=== PATIENT | female | born 1960 | race Caucasian/White ===

== ENCOUNTER 2016-08-04 14:50 | Inpatient (IN) | payer OTHER ==
[~2016-08-04] VITALS: Ht 170.2 cm; Wt 81.6 kg
[~2016-08-04 14:50] MED LIST: BENTYL20 M1 PO; CIPRO 500MG TA500 MG PO; CIPRO500 M1 PO; CYTOMEL5 MCG PO; ZOFRAN ODT4 MG PO
--- NOTE | 2016-08-04 14:54 | NUR ---
C/O CONSTIPATION X2 WEEKS, NO RELIEF WITH FLEETS. PT TAKING VICODIN. ALSO TOOK SENACOT WITH NO RELIEF
--- NOTE | 2016-08-04 19:24 | NUR ---
PT TO ROOM 17 AND EVALUATED BY HIRA FRANCO. IV EST, IVF INFUSING AND ZOFRAN GIVEN. BLOOD SENT (SHAYY/LEONARD/KIRBY). PT AMBULATED TO BATHROOM FOR URINE SAMPLE. AFTER SEVERAL MINUTES IN BATHROOM, CAME TO NURSING STATION STATING PT WAS SCREAMING AND YELLING AND WOULDN'T COME OUT OF THE BATHROOM "BECAUSE SHE HAS PAIN AND WANTS A NURSE." PT CHECKED IN BATHROOM, HYPERVENTILATING AND MOANING, URINE NOTED IN TOILET WITH NONE IN CUP AND PT STATING "I JUST COULDN'T GO AND EVERY TIME I TRY IT HURTS SO BAD AND I DON'T WANT ANY OF THESE IV FLUIDS I NEED THEM TO GIVE ME SOMETHING FOR THIS PAIN." PT INFORMED SHE CANNOT BE MEDICATED IN BATHROOM AND AMBULATED BACK TO ROOM INDEPENDENTLY. PT CALMER AFTER REST AND SEVERAL MINUTES OF DISTRACTION FROM . EXPLAINED TO PT THAT "STRONG PAIN MEDS" THAT SHE IS REQUESTING WILL CONTRIBUTE TO THE CONSTIPATION SHE IS FINDING SO PAINFUL. PT AWAITING CT SCAN AT THIS TIME.
[2016-08-04] MEDS ORDERED: VITAMIN D2000 UNIT PO (19:30)
[2016-08-04] MEDS ORDERED: HYDROCODON-ACE1 EAC6 PO (19:30)
[2016-08-04 19:44] LABS: ABSOLUTE BASOPHIL COUNT 0.2 /CUMM (0.0-0.2); ABSOLUTE EOSINOPHIL COUNT 0 /CUMM (0.0-0.7); ABSOLUTE GRANULOCYTE CT 16.7 /CUMM (1.4-6.5); ABSOLUTE LYMPH COUNT 2.5 /CUMM (1.2-3.4); ABSOLUTE MONOCYTE COUNT 0.9 /CUMM (0.10-0.60); EOSINOPHIL % 0 % (0-5); HEMATOCRIT 42.7 % (37-47); MEAN CORPUSCULAR HGB 30.4 PG (27.0-31.0); MEAN CORPUSCULAR HGB CONC 33.3 G/DL (33.0-37.0); MEAN CORPUSCULAR VOLUME 91.4 FL (81.0-99.0); MEAN PLATELET VOLUME 8.5 FL (7.4-10.4); PLATELET COUNT 255 /CUMM (130-400); RBC DISTRIBUTION WIDTH 13.4 % (11.5-14.5); RED BLOOD CELL CT 4.67 /CUMM (4.20-5.40); WHITE BLOOD CELL COUNT 20.2 /CUMM (4.8-10.8)
[2016-08-04 19:45] LABS: GRANULOCYTE % 82.3 % (42.2-75.2)
--- NOTE | 2016-08-04 20:01 | ED GI/GU/ABDOMINAL COMPLAINT ---
History of Present Illness General Chief Complaint: Low Back Pain/Injury Stated Complaint: LOWER BACK PAIN "HAVE NOT MOVED BOWELS IN 2 WEEKS" Source: patient Exam Limitations: no limitations Allergies Coded Allergies: NO KNOWN ALLERGIES (06/16/12) Reconcile Medications Cholecalciferol (Vitamin D3) (Vitamin D) (Unknown Strength) CAPSULE (Unknown Dose) PO DAILY SUPPLEMENT (Reported) Hydrocodone/Acetaminophen (Hydrocodon-Acetaminoph 7.5-300) 7.5 MG-300 MG TABLET 1 TAB PO EOD PAIN (Reported) Liothyronine Sodium (Cytomel) 5 MCG TABLET 1 TAB PO DAILY THYROID (Reported) Triage Note: C/O CONSTIPATION X2 WEEKS, NO RELIEF WITH FLEETS. PT TAKING VICODIN. Triage Nurses Notes Reviewed? yes ? N Is pt currently ? No HPI: This patient is a 56-year-old female who presented to the emergency department today for evaluation of constipation. The patient reported that she started taking Vicodin for a left arm fracture. She has taken 5 doses of this. The patient reported that she has not moved her bowels or passed gas 2 weeks. She reported that last night she started having 8 out of 10, cramping lower abdominal pain primarily on the left side. The pain is nonradiating and constant. She also has been having back pain, but reported that this pain she has had for, for "a while." The patient reports that she has not urinated since this afternoon reported that she feels like she can't because it is painful. The patient reported chills, but denied any fevers. She denies any chest pain or difficulty breathing. No diarrhea. Positive nausea and vomiting today. No blood in the vomitus. (JOAN BAUTISTA,CHRISTIANO) Vital Signs & Intake/Output Vital Signs & Intake/Output Vital Signs Date Time Temp Pulse Resp B/P Pulse O2 O2 Flow FiO2 Ox Delivery Rate 08/06 0714 98.1 58 18 122/80 95 Room Air 08/05 2340 98.7 58 18 112/56 97 Room Air 08/05 1550 97.9 62 19 122/62 95 ED Intake and Output 08/06 0000 08/05 1200 Intake Total 2700 600 Output Total 700 600 Balance 2000 0 Intake, IV 1600 600 Intake, Oral 1100 Number 3 Bowel Movements Output, Urine 700 600 Patient 180 lb Weight Past History Travel History Traveled to [place] past 21 day No Medical History Any Pertinent Medical History? 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 No (CHRISTIANO FRANCO PA-C) Review of Systems Review of Systems Constitutional: Reports: see HPI. EENTM: Reports: no symptoms. Respiratory: Reports: no symptoms. Cardiovascular: Reports: no symptoms. GI: Reports: see HPI. Genitourinary: Reports: see HPI. Musculoskeletal: Reports: see HPI. Skin: Reports: no symptoms. Neurological/Psychological: Reports: no symptoms. All Other Systems: Reviewed and Negative (CHRISTIANO FRANCO PA-C) Physical Exam Physical Exam Gastrointestinal: hypoactive bowel sounds, soft, distended, no organomegaly, no rebound or guarding, tenderness across the lower abdomen. Comments: Well-developed well-nourished person in no acute distress HEENT: Normal EENT exam, moist mucous membranes Pupils equally round and reactive to light. Neck: Supple Back: Normal inspection. No midline tenderness. Right-sided CVA tenderness Cardiovascular: Regular rate and rhythm without murmurs, rubs, or gallops Respiratory: No respiratory distress. Breath sounds clear to auscultation bilaterally Extremity: Normal and equal pulses Neuro: Alert oriented x3, cranial nerves II through XII grossly intact. Skin: No appreciable rash on exposed skin, skin is warm and dry. Psych: Mood and affect is normal, memory and judgment is normal. Core Measures ACS in differential dx? No Severe Sepsis Present: No Septic Shock Present: No (CHRISTIANO FRANCO PA-C) Progress Differential Diagnosis: AMI, biliary colic, bowel obstruction, colon cancer, cholecystitis, diverticulitis, gastritis, hepatitis, ischemic bowel, inflamm bowel dis, ovarian cyst, ovarian torsion, pancreatitis, PID/cervicitis, PUD/GERD , perforated viscous, SBO, UTI/pyelo Diagnostic Imaging: Viewed by Me: CT Scan. Discussed w/RAD: CT Scan. Radiology Impression: PATIENT: RAMONA MUSA PRESENT AGE: 56 PATIENT ACCOUNT NO: [id number] : 56 LOCATION: [facility] ORDERING PHYSICIAN: CHRISTIANO FRANCO PA-C SERVICE DATE: 08/04/16 EXAM TYPE: CAT - CT ABD & PELVIS W IV CONTRAST EXAMINATION: CT ABDOMEN AND PELVIS WITH CONTRAST CLINICAL INFORMATION: 56-year-old female reports no bowel movement for 2 weeks. COMPARISON: CT of the abdomen and pelvis on 12/28/2015. (No obstruction, no IBD) . TECHNIQUE: Multidetector volumetric imaging was performed of the abdomen and pelvis before and after the IV administration of 95 mL of Optiray 320 intravenous contrast. Sagittal and coronal reformatted images were obtained on the technologist's workstation. DLP: 638 mGy-cm. FINDINGS: Business Initiatives Manager view demonstrates severe stool impaction in the rectosigmoid colon. There is no proximal dilatation of the intestinal tract. LUNG BASES: The visualized lung bases are unremarkable. LIVER, GALLBLADDER, AND BILIARY TREE: Normal. PANCREAS: Unremarkable. SPLEEN: Unremarkable. ADRENAL GLANDS: Unremarkable. KIDNEYS AND URETERS: Normal. The right renal pelvis is extrarenal. BLADDER: Distended. GASTROINTESTINAL TRACT: There are two significant findings with regard to the GI tract. First, on the prior CT exam, the duodenal jejunal junction was located in the left upper quadrant in the normally expected position. On today's exam the patient has a mobile mesentery and the DJ junction is clearly positioned more medially and inferiorly. There are slightly dilated proximal jejunal loops now present in the right abdomen. Also, there is a swirling type appearance at the root of the mesentery. This was not the case on the previous study. This volvulus has resulted in incomplete obstruction and the distal small bowel loops are decompressed. Also, the cecum and ileocecal valve are positioned more superiorly and medially on today's exam when compared to the prior study. The second abnormality is the observation that the patient has severe stool impaction of the rectosigmoid colon. The distended stool-filled rectosigmoid colon measures 8 cm in diameter. The rest of the colon is decompressed. There is no free air or free fluid. No pneumatosis. ABDOMINAL WALL: No significant hernia is appreciated. LYMPH NODES: Normal. VASCULAR: Numerous calcific plaques are seen in the infrarenal abdominal aorta. PELVIC VISCERA: Normal uterus and adnexa. No free fluid. OSSEOUS STRUCTURES: Unremarkable. IMPRESSION: 1. Findings that would indicate a partial small bowel obstruction due to a mobile mesentery, (malrotation), and jejunal volvulus. 2. Mobile cecum. 3. Severe stool impaction of the rectosigmoid colon. DICTATED BY: JOHN AKHTAR MD DATE/TIME DICTATED: 08/04/162104 BRAKE MECHANIC:CHRIS DATE/TIME TRANSCRIBED:08/04/162104 CONFIDENTIAL, DO NOT COPY WITHOUT APPROPRIATE AUTHORIZATION. <Electronically signed in Other Vendor System> SIGNED BY: JOHN AKHTAR MD 08/04/162129 Initial ED EKG: none Comments: 08/04/2016 8:46:19 PM: I was at the patient's bedside for reevaluation. She reported no relief of her abdominal pain with IV Toradol. I would like to avoid giving this patient any more narcotic take medications due to the constipating effect. The patient reported relief of her nausea. White blood cell count 20. My suspicion is that this patient has a small bowel obstruction. Awaiting results of CT scan times. 08/04/2016 10:04:01 PM: I discussed this patient with on-call general surgeon, Dr. Melchor. The surgical PA will be down to the patient's bedside for face-to- face evaluation. 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 08/04/2016 10:13:19 PM: Surgical PAs currently at the patient's bedside. Dr. Melchor paged to let me know that he looked at the CT scan results and does not think that this is a volvulus or an obstruction. He lives that this patient is impacted and is requesting that this patient given an enema. 08/04/2016 11:05:56 PM: Discussed this patient with Dr. MAZARIEGOS. This patient does have a leukocytosis and abdominal pain. Suggested that I admit this patient to general medicine for further workup. Surgical consultation concluded that this patient is impacted and that there is no impaction or volvulus. I attempted multiple times to manually disimpact this patient. A small amount of brown stool was removed. However, the patient refused further manual disimpaction. Will try 12 mg subcutaneous of Relistor as this is likely at least in part due to opioid-induced constipation. Will also try a soapsuds enema. (JOAN BAUTISTA,CHRISTIANO) Plan of Care: Orders Procedure Date/time Status [id number] VIEWS 08/06 0600 Active Regular Diet 08/05 D Active Pain Treatment and Response 08/05 1635 Active Nursing Misc 08/05 UNK Active Current Medications Sig/Kalin Start time Last Medication Dose Stop Time Status Admin Hyoscyamine 0.125 MG Q6PRN PRN 08/05 1730 AC (Levsin) Nicotine 14 MG Q24 08/05 1000 AC (Nicotine Cq) Ibuprofen 600 MG Q6P PRN 08/05 0100 AC (Motrin) Departure Departure Disposition: STILL A PATIENT Condition: Stable Clinical Impression Primary Impression: Leukocytosis Qualifiers: Leukocytosis type: unspecified Qualified Code: D72.829 - Elevated white blood cell count, unspecified Secondary Impressions: Abdominal pain Qualifiers: Abdominal location: lower abdomen, unspecified Qualified Code: R10.30 - Lower abdominal pain, unspecified Referrals: AVANI PARRA MD (PCP/Family) Departure Forms: Customer Survey General Discharge Information Admission Note Spoke With: AVANI PARRA MD Documentation of Exam: Documentation of any treatments & extenuating circumstances including Concerns Regarding Discharge (functional status, medication knowledge or non-compliance, living conditions, etc.) that warrant an admission rather than observation: [ THIS PATIENT IS A 56 YEAR OLD FEMALE WHO PRESENTED TO THE EMERGENCY DEPARTMENT FOR EVALUATION OF ABDOMINAL PAIN AND CONSTIPATION. WBC COUNT 20. IMPACTED STOOL. THIS PATIENT WILL NEED ADMISSION FOR PAIN MANAGEMENT, TREND LABS, FOLLOW-UP URINE CULTURE, POSSIBLE GI CONSULTATION. PREMATURE DISCHARGE COULD PROVE MEDICALLY HARMFUL.] (CHRISTIANO FRANCO PA-C) PA/VETERAN APPEALS REVIEWER Co-Sign Statement Statement: ED Attending supervision documentation- x I saw and evaluated the patient. I have also reviewed all the pertinent lab results and diagnostic results. I agree with the findings and the plan of care as documented in the PA's/VETERAN APPEALS REVIEWER's documentation. [] I have reviewed the ED Record and agree with the PA's/VETERAN APPEALS REVIEWER's documentation. [] Additions or exceptions (if any) to the PAs/VETERAN APPEALS REVIEWER's note and plan are summarized below: [] (YAIR SOLOMON,ARMANI) Documentation of any treatments & extenuating circumstances including Concerns Regarding Discharge (functional status, medication knowledge or non-compliance, living conditions, etc.) that warrant an admission rather than observation: [ THIS PATIENT IS A 56 YEAR OLD FEMALE WHO PRESENTED TO THE EMERGENCY DEPARTMENT FOR EVALUATION OF ABDOMINAL PAIN AND CONSTIPATION. WBC COUNT 20. IMPACTED STOOL. THIS PATIENT WILL NEED ADMISSION FOR PAIN MANAGEMENT, TREND LABS, FOLLOW-UP URINE CULTURE, POSSIBLE GI CONSULTATION. PREMATURE DISCHARGE COULD PROVE MEDICALLY HARMFUL.] (JOAN BAUTISTA,CHRISTIANO) PA/VETERAN APPEALS REVIEWER Co-Sign Statement Statement: ED Attending supervision documentation- x I saw and evaluated the patient. I have also reviewed all the pertinent lab results and diagnostic results. I agree with the findings and the plan of care as documented in the PA's/VETERAN APPEALS REVIEWER's documentation. [] I have reviewed the ED Record and agree with the PA's/VETERAN APPEALS REVIEWER's documentation. [] Additions or exceptions (if any) to the PAs/VETERAN APPEALS REVIEWER's note and plan are summarized below: [] (YAIR SOLOMON,ARMANI)
--- NOTE | 2016-08-04 20:12 | NUR ---
MEDICATED WITH TORADOL FOR PAIN, REFUSES TO PROVIDE NUMERIC RATING AT THIS TIME, STATING PAIN IS MAINLY "IN MY RECTUM." SPOUSE ASKING "WHEN AND WHAT ARE YOU GOING TO GIVE HER TO EAT?" EXPLAINED TO PT AND SPOUSE THAT PT NEEDS TO STAY NPO UNTIL CONDITION IS EXPLORED FURTEHR.
--- NOTE | 2016-08-04 21:30 | CT SCAN REPORT ---
EXAMINATION: CT ABDOMEN AND PELVIS WITH CONTRAST CLINICAL INFORMATION: 56-year-old female reports no bowel movement for 2 weeks. COMPARISON: CT of the abdomen and pelvis on 12/28/2015. (No obstruction, no IBD). TECHNIQUE: Multidetector volumetric imaging was performed of the abdomen and pelvis before and after the IV administration of 95 mL of Optiray 320 intravenous contrast. Sagittal and coronal reformatted images were obtained on the technologist's workstation. DLP: 638 mGy-cm. FINDINGS: Wire Rope Sling Maker view demonstrates severe stool impaction in the rectosigmoid colon. There is no proximal dilatation of the intestinal tract. LUNG BASES: The visualized lung bases are unremarkable. LIVER, GALLBLADDER, AND BILIARY TREE: Normal. PANCREAS: Unremarkable. SPLEEN: Unremarkable. ADRENAL GLANDS: Unremarkable. KIDNEYS AND URETERS: Normal. The right renal pelvis is extrarenal. BLADDER: Distended. GASTROINTESTINAL TRACT: There are two significant findings with regard to the GI tract. First, on the prior CT exam, the duodenal jejunal junction was located in the left upper quadrant in the normally expected position. On today's exam the patient has a mobile mesentery and the DJ junction is clearly positioned more medially and inferiorly. There are slightly dilated proximal jejunal loops now present in the right abdomen. Also, there is a swirling type appearance at the root of the mesentery. This was not the case on the previous study. This volvulus has resulted in incomplete obstruction and the distal small bowel loops are decompressed. Also, the cecum and ileocecal valve are positioned more superiorly and medially on today's exam when compared to the prior study. The second abnormality is the observation that the patient has severe stool impaction of the rectosigmoid colon. The distended stool-filled rectosigmoid colon measures 8 cm in diameter. The rest of the colon is decompressed. There is no free air or free fluid. No pneumatosis. ABDOMINAL WALL: No significant hernia is appreciated. LYMPH NODES: Normal. VASCULAR: Numerous calcific plaques are seen in the infrarenal abdominal aorta. PELVIC VISCERA: Normal uterus and adnexa. No free fluid. OSSEOUS STRUCTURES: Unremarkable. IMPRESSION: 1. Findings that would indicate a partial small bowel obstruction due to a mobile mesentery, (malrotation), and jejunal volvulus. 2. Mobile cecum. 3. Severe stool impaction of the rectosigmoid colon.
--- NOTE | 2016-08-04 22:13 | NUR ---
PT BLOOD PINK AND BLUE SENT TO THE LAB
[2016-08-04 22:51] LABS: PT 12.3 SEC (9.4-12.5); PTT 30 SEC (25-37)
--- NOTE | 2016-08-04 22:54 | Cons- General Surgery ---
FUAD KIMBROUGH 08/04/16 2234: General Information and HPI Consulting Request Date of Consult: 08/04/16 Requested By: Emergency department staff Reason for Consult: Constipation, abdominal pain, and questionable small bowel obstruction on CAT scan Source of Information: patient Exam Limitations: no limitations History of Present Illness: This is a 56-year-old female who presents to the emergency department with complaints of a to [place] history of constipation/obstipation with 1 episode of vomiting this evening. Additionally she complains of abdominal discomfort and bloating. The patient was seen she reports approximately 2-1/2 weeks ago she fell and sustained a wrist fracture. Since then she has been taking Vicodin daily. Upon additional questioning she does admit to passing flatus but just not as well and obnoxious as her does. However, she has not had a bowel movement approximately 2-1/2 weeks. This morning when she awoke she was slightly nauseous and had 1 bout of emesis which concerned her so she came to the emergency department for further workup. She also complains of difficulty urinating for the past day and a half but denies any dysuria. The patient is on length current time. She has a significant surgical history for an appendectomy and tubal ligation. Allergies/Medications Allergies: Coded Allergies: NO KNOWN ALLERGIES (06/16/12) Home Med List: Cholecalciferol (Vitamin D3) (Vitamin D) (Unknown Strength) CAPSULE (Unknown Dose) PO DAILY SUPPLEMENT (Reported) Hydrocodone/Acetaminophen (Hydrocodon-Acetaminoph 7.5-300) 7.5 MG-300 MG TABLET 1 TAB PO EOD PAIN (Reported) Liothyronine Sodium (Cytomel) 5 MCG TABLET 1 TAB PO DAILY THYROID (Reported) Past History Medical History Neurological: NONE EENT: NONE Cardiovascular: NONE Respiratory: NONE Gastrointestinal: NONE Hepatic: NONE Renal: NONE Musculoskeletal: NONE Psychiatric: NONE Endocrine: hypothyroidism Blood Disorders: NONE Cancer(s): NONE 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 Home Who Do You Live With? spouse Services at Home: None Primary Language: Polish Smoking Status: Current Some Day Smoker ETOH Use: denies use Illicit Drug Use: denies illicit drug use Functional Ability ADLs Independent: dressing, eating, toileting, bathing. Ambulation: independent IADLs Independent: shopping, housework, finances, food prep, telephone, transportation , medication admin. 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 Respiratory: Denies: cough, short of breath. Genitourinary: Reports: urgency. Denies: dysuria. Exam & Diagnostic Data Vital Signs and I&O Vital Signs Date Time Temp Pulse Resp B/P Pulse O2 O2 Flow FiO2 Ox Delivery Rate 08/04 2122 99.2 92 18 128/63 97 Room Air 08/04 1843 97.8 90 18 132/69 95 08/04 1505 96 Room Air 08/04 1456 96.4 103 16 115/78 Room Air Intake & Output 08/04 1600 08/04 0800 08/04 0000 08/03 1600 08/03 0800 08/03 0000 Intake Total Output Total Balance Patient 180 lb Weight Laboratory Tests 08/04 08/04 2205 2153 Coagulation PT Pending INR Pending APTT Pending Urines Urine Color (YEL,AMB,STR) YEL Urine Clarity (CLEAR) CLEAR Urine pH (5.0 - 8.0) 6.0 Ur Specific [place] (1.001 - 1.035) 1.010 Urine Protein (NEG,<30 MG/DL) NEG Urine Ketones (NEG) NEG Urine Nitrite (NEG) NEG Urine Bilirubin (NEG) NEG Urine Urobilinogen (0.1 - 1.0 EU/dl) 0.2 Ur Leukocyte Esterase (NEG) NEG Ur Microscopic EXAM NOT REQUIRED Urine Hemoglobin (NEG) NEG Urine Glucose (N MG/DL) NEG 08/04 1922 Chemistry Sodium (137 - 145 mmol/L) 139 Potassium (3.5 - 5.1 mmol/L) 4.9 Chloride (98 - 107 mmol/L) 98 Carbon Dioxide (22 - 30 mmol/L) 22 Anion Gap (5 - 16) 19 H BUN (7 - 17 mg/dL) 18 H Creatinine (0.5 - 1.0 mg/dL) 0.6 Estimated GFR (>60 ml/min) > 60 BUN/Creatinine Ratio (7 - 25 %) 30.0 H Glucose (65 - 99 mg/dL) 116 H Calcium (8.4 - 10.2 mg/dL) 10.1 Total Bilirubin (0.2 - 1.3 mg/dL) 0.9 AST (14 - 36 U/L) 27 ALT (9 - 52 U/L) 22 Alkaline Phosphatase (<127 U/L) 74 Total Protein (6.3 - 8.2 g/dL) 7.9 Albumin (3.5 - 5.0 g/dL) 4.9 Globulin (1.9 - 4.2 gm/dL) 3.0 Albumin/Globulin Ratio (1.1 - 2.2 %) 1.6 Amylase (30 - 110 U/L) 36 Lipase (23 - 300 U/L) 67 Hematology CBC w Diff NO MAN DIFF REQ WBC (4.8 - 10.8 /CUMM) 20.2 H RBC (4.20 - 5.40 /CUMM) 4.67 Hgb (12.0 - 16.0 G/DL) 14.2 Hct (37 - 47 %) 42.7 MCV (81.0 - 99.0 FL) 91.4 MCH (27.0 - 31.0 PG) 30.4 RDW (11.5 - 14.5 %) 13.4 Plt Count (130 - 400 /CUMM) 255 MPV (7.4 - 10.4 FL) 8.5 Gran % (42.2 - 75.2 %) 82.3 H Lymphocytes % (20.5 - 51.1 %) 12.5 L Monocytes % (1.7 - 9.3 %) 4.2 Eosinophils % (0 - 5 %) 0 Basophils % (0.0 - 2.0 %) 1.0 Absolute Granulocytes (1.4 - 6.5 /CUMM) 16.7 H Absolute Lymphocytes (1.2 - 3.4 /CUMM) 2.5 Absolute Monocytes (0.10 - 0.60 /CUMM) 0.9 H Absolute Eosinophils (0.0 - 0.7 /CUMM) 0 Absolute Basophils (0.0 - 0.2 /CUMM) 0.2 PUBS MCHC (33.0 - 37.0 G/DL) 33.3 CAT scan of abdomen and pelvis reviewed by myself and Dr. David Melchor the patient has a fecal impaction which is causing her extreme urinary retention Physical Exam: 0 Gen.: Alert and in no obvious distress Skin: Warm and dry without jaundice Chest: Nontender with equal expansion Cardiac: S1 and S2 regular Pulmonary: Bilateral breath sounds are equal with good exchange Abdomen: Soft, nondistended, mild bilateral lower quadrant tenderness without rebound or guarding, bowel sounds positive. No masses or hernias were appreciated. 70s: Bilateral lower extremities are warm without calf tenderness or significant edema Assessment/Plan Assessment/Plan Assessment: 48-year-old female with 2 half week history of constipation. The patient's has been recently taking narcotics due to a wrist fracture. The patient has no prior history of constipation or obstruction. The CAT scan and laboratory studies were reviewed by myself and Alex Melchor MD. It is felt that the patient has significant urinary retention due to fecal impaction caused by narcotic use. Recommendations: The patient would benefit from fecal disimpaction and enemas The patient is discharged should be started on regiment of milk of magnesia and Colace The patient can follow up with her primary care physician Limit or offer an alternative pain regiment for recent wrist fracture Ambulate frequently and keep hydrated Problem List: 1. Abdominal pain Consult Acknowledgment - Thank you for your consult request. KRISTINA SOLOMON,ALEX Silva 08/05/16 0803: Assessment/Plan Consult Acknowledgment - Thank you for your consult request. Attending MD Review Statement Attending Statement Attending MD Statement: agreed w/resident/PA/PARAFFINER, reviewed images Attending Assessment/Plan: Patients CT reviewed. No findings to suggest a small bowel process. Constipation and urinary retention. Observe leukocytosis. Needs disimpaction. I was told that she refused last night. Will reinforce need with patient.
--- NOTE | 2016-08-04 23:31 | NUR ---
CALLED DR PARRA ANSWERING SERVICE AGAIN AND LEFT MESSAGE TO CALL BACK
--- NOTE | 2016-08-04 23:41 | NUR ---
HIRA FRANCO ATTEMPTED TO DISIMPACT PT AND REPORTED STOOL IS SOFT BUT PT UNABLE TO TOLERATE REMOVAL OF ANY SIGNIFICANT AMOUNT OF STOOL DUE TO PAIN R/T INTENRAL HEMORRHOIDS AND THE PROCEDURE. PT REFUSED FURTHER ATTEMPTS AT THAT TIME. AFTER DISCUSSION WITH PA, DR MAZARIEGOS, AND PT'S PMD, PT GIVEN RELISTOR AT THIS TIME DUE TO CONCERNS THAT ENEMAS WILL NOT BE EFFECTIVE WITH SUCH A LARGE IMPACTION STILL PRESENT. PT MOVED TO ROOM 10 FOR THE NIGHT, CALL BUTTON IN REACH, RELISTOR GIVEN. PA IN ROOM TO UPDATE PT ON PLAN OF CARE. SPOUSE AT BEDSIDE FOR SUPPORT.
--- NOTE | 2016-08-04 23:57 | History & Physical ---
RYLEE CHAU MD 08/04/16 0352: General Information and HPI MD Statement: I have seen and personally examined RAMONA MUSA and documented this H&P. The patient is a 56 year old F who presented with a patient stated chief complaint of [constipation for 2.5 weeks]. Source of Information: patient Exam Limitations: no limitations History of Present Illness: 56-year-old female with PMH of constipation, alternating with diarrhea, hypothyroidism, presented to the ED for abdominal and back pain associated with 2.5 weeks of not being able to pass stool and gas. This morning, she woke up with right lower quadrant soreness and right sided back soreness, rated as 8/10, constant. The pain is exacerbated with attempts to pass stool. It was too painful she was not able to have a BM despite using fleet enema and senokot this morning. She feels the urgency to move her bowel but unable to do so due to the severe pain in her anal area, along with the abdominal and back pain, when she tries. She has had chills all day. Denies fever. She had an episode of nausea and vomiting (clear liquid) today. She has not had much to eat all day and was reporting feeling hungry. She reports palpitations and mild leg swelling. She does get winded at baseline, however her shortness of breath is worse when she is having severe pain. When she was trying to urinate to give a urine sample, she was having a lot of pain in her anal area and was unable to urinate on her own. We got the sample by urinary catheterization. She recently fractured her left arm (from a mechanical fall on the curb) and was prescribed vicodin. Since 07/19/16, she has taken a total of 5 pills because she does not like the way the vicodin makes her feel. She last took the vicodin on . Rosanna keeps her arm pain well-controlled. She recently travelled to [facility], on Jun 29. She denied drinking tap water, or raw food, but reports drinking whisky from the open bar. Of note, at baseline she moves her bowel 1-2 times per week. She also has alternating diarrhea and constipation, the last diarrhea was about 2 years ago, with blood, that lasted 4-5 months, for which she had the colonoscopy done with Dr. Mccrary. She has also noted On CT scan, it shows possible partial small bowel obstruction due to mobile mesentery, malrotation, jejunal volvulus, DD includes internal hernia vs transmesenteric internal hernia vs right paraduodenal hernia, and SEVERE STOOL IMPACTION of rectosigmoid colon. ED PA attempted manual disimpaction and was only able to remove a small brown stool until patient refused further attempts. Surgical team (Dr. Melchor) was consulted by the ED and they do not believe the patient has obstruction and that her symptoms are cause by the stool impaction, therefore there is no surgical intervention needed. Allergies/Medications Allergies: Coded Allergies: NO KNOWN ALLERGIES (06/16/12) Home Med list Cholecalciferol (Vitamin D3) (Vitamin D) (Unknown Strength) CAPSULE 1 TAB PO DAILY SUPPLEMENT (Reported) Docusate Sodium 100 MG CAPSULE 100 MG PO BID CONSTIPATION Liothyronine Sodium (Cytomel) 5 MCG TABLET 1 TAB PO DAILY THYROID (Reported) Polyethylene Glycol 3350 (Miralax) 17 GRAM/DOSE POWDER 17 GM PO DAILY CONSTIPATION STOP IF YOU HAVE LOOSE STOOLS Sennosides/Docusate Sodium (Senna Plus Tablet) 8.6 MG-50 MG TABLET 1 TAB PO BID PRN CONSTIPATION Past History Travel History Traveled to [place] past 21 day No Medical History Neurological: NONE EENT: NONE Cardiovascular: NONE Respiratory: NONE Gastrointestinal: NONE Hepatic: NONE Renal: NONE Musculoskeletal: NONE Psychiatric: NONE Endocrine: hypothyroidism Blood Disorders: NONE Cancer(s): NONE 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 Home Who Do You Live With? spouse Services at Home: None Primary Language: Estonian Smoking Status: Current Everyday Smoker ETOH Use: denies use Illicit Drug Use: denies illicit drug use Functional Ability ADLs Independent: dressing, eating, toileting, bathing. Ambulation: independent IADLs Independent: shopping, housework, finances, food prep, telephone, transportation , medication admin. 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 Denies: fever. EENTM: Denies: visual changes. Cardiovascular: Reports: palpitations. Denies: chest pain. Respiratory: Reports: short of breath. GI: Reports: abdominal pain, constipation, nausea, vomiting. Genitourinary: Reports: dysuria, hesitation, pain. Musculoskeletal: Reports: back pain. Exam & Diagnostic Data Last 24 Hrs of Vital Signs/I&O Vital Signs Date Time Temp Pulse Resp B/P Pulse O2 O2 Flow FiO2 Ox Delivery Rate 08/05 0121 98.8 87 20 116/84 96 Room Air 08/05 0119 Room Air 08/04 2324 99.2 96 18 127/63 96 Room Air 08/04 2123 99.2 92 18 128/63 97 Room Air 08/04 1843 97.8 90 18 132/69 95 08/04 1505 96 Room Air 08/04 1456 96.4 103 16 115/78 Room Air Intake & Output 08/05 0800 08/05 0000 08/04 1600 Intake Total 1000 Output Total Balance 1000 Intake, IV 1000 Patient 81.647 kg 81.647 kg Weight Physical Exam General Appearance Alert, Oriented X3, Cooperative, Mild Distress Skin No Significant Lesion HEENT Atraumatic, PERRLA, EOMI, Mucous Membr. moist/pink Neck Supple, No JVD, +2 Carotid Pulse wo Bruit Lymphatic Axillary nl, Cervical nl Cardiovascular Regular Rate, Normal S1, Normal S2, No Murmurs, Gallops, Rubs Lungs Clear to Auscultation, Normal Air Movement Abdomen Soft, tender on right lower quadrant and right upper quadrant , mild guarding , hypoactive bowel sounds , right cva tenderness Neurological Normal Speech Extremities No Edema Vascular Normal Pulses, Pulses Symmetrical Last 24 Hrs of Labs/Bryan: Laboratory Tests 08/04/162204: PT 12.3, INR 1.17, APTT 30 08/04/162152: Urine Color YEL, Urine Clarity CLEAR, Urine pH 6.0, Ur Specific [place] 1.010, Urine Protein NEG, Urine Ketones NEG, Urine Nitrite NEG, Urine Bilirubin NEG, Urine Urobilinogen 0.2, Ur Leukocyte Esterase NEG, Ur Microscopic EXAM NOT REQUIRED, Urine Hemoglobin NEG, Urine Glucose NEG 08/04/161922: Anion Gap 19 H, Estimated GFR > 60, BUN/Creatinine Ratio 30.0 H, Glucose 116 H, Calcium 10.1, Total Bilirubin 0.9, AST 27, ALT 22, Alkaline Phosphatase 74, Total Protein 7.9, Albumin 4.9, Globulin 3.0, Albumin/Globulin Ratio 1.6, Amylase 36, Lipase 67, CBC w Diff NO MAN DIFF REQ, RBC 4.67, MCV 91.4, MCH 30.4, RDW 13.4, MPV 8.5, Gran % 82.3 H, Lymphocytes % 12.5 L, Monocytes % 4.2, Eosinophils % 0, Basophils % 1.0, Absolute Granulocytes 16.7 H, Absolute Lymphocytes 2.5, Absolute Monocytes 0.9 H, Absolute Eosinophils 0, Absolute Basophils 0.2, PUBS MCHC 33.3 Microbiology 08/043 URINE ROUT: Urine Culture - RECD Diagnostic Data Other Results CT abd and pelvis: IMPRESSION: 1. Findings that would indicate a partial small bowel obstruction due to a mobile mesentery, (malrotation), and jejunal volvulus. 2. Mobile cecum. 3. Severe stool impaction of the rectosigmoid colon. Differential diagnosis would include some form of internal hernia. A transmesenteric internal hernia, rare, typically occur following Radhika-en-Y gastric bypass. A right paraduodenal hernia could explain these findings Assessment/Plan Assessment: 56-year-old female with PMH of constipation, alternating with diarrhea, hypothyroidism, presented to the ED for abdominal and back pain associated with 2.5 weeks of not being able to pass stool and gas. Pt admitted to with the following problems addressed: # Stool impaction most likely opioid induced, vs partial small bowel obstruction - Leukocytosis WBC 20.2 - Given 12 mg SC relistor * Lactulose enema MD 1 bottle q8 (pt refused lactulose now because she is tired) * Senna bid * Miralax daily * Check Stool culture, ova and parasite given recent travel hx * IVF NS at 100ml/hr * Clear liquid diet * GI consult placed for am * Reconsult surgery if needed * Abdominal xray if needed * Hold opioids # Pain with urination - Negative UA * Follow UC # Left arm fracture * Keep arm in sling * Motrin 600 q6p * Avoid opioids # Nicotine dependence * Nicotine patch # hypothyroidism * Continue liothyronine Diet: clear liquid Fluids: 100ml/hr NS DVT ppx: alps & lovenox FULL CODE As Ranked By This Provider Problem List: 1. Fecal impaction Core Measures/Miscellaneous Acute Coronary Syndrome ACS Diagnosis: No Cerebrovascular Accident CVA/TIA Diagnosis: No Congestive Heart Failure CHF Diagnosis: No Venous Thromboembolism VTE Risk Factors: Acute medical illness, Age > 40 VTE Prophylaxis Ordered Inpt: Mech & Pharm No Mech VTE prophylaxis d/t: No contraindications No VTE Pharm Prophylaxis d/t: No contraindications VTE Diagnosis: No VTE Type: NONE VTE Confirmed by (Test): NONE Severe Sepsis Severe Sepsis Present: No Septic Shock Septic Shock Present: No Miscellaneous Documentation Attending Case Discussed With: AVANI PARRA MD Primary Care Physician: AVANI PARRA MD Patient sees these Specialists Dr Demetra UNDERWOOD Level of Patient Care: General Medicine LESTER VASQUEZ 08/05/16 0212: Resident Review Statement Resident Statement: examined this patient, discussed with lab intern, agreed with lab intern, discussed with family, reviewed EMR data (avail), reviewed images, amended to note Other Findings: This is 56-year-old female with PMH of constipation, alternating with diarrhea, hypothyroidism, presented to the ED for abdominal and back pain associated with 2.5 weeks of not being able to pass stool and gas. She had an episode of nausea and vomiting. Patient reports alternating history of constipation and diarrhea with bloody stool, she stated that last time she had a day. Was couple month ago. Patient has a history of opioid use due to her upper extremity fracture. Positive history for recent travel to [place] in a June 2016. Denies fever, headache, hematuria. ED PA attempted manual disimpaction and was only able to remove a small brown stool until patient refused further attempts. Surgical team was consulted by the ED and they do not believe the patient has obstruction and that her symptoms are cause by the stool impaction, therefore there is no surgical intervention needed. Physical examination, lab and imaging as above. Problem list: -Leukocytosis due to severe stool impaction -Partial small bowel obstruction that could be due to opioid medication. Plan: -Admit patient to general medicine floor -Vitals every shift, -Start the patient on MiraLAX, senna, enema -Lactulose every 8 enema -Abdomen x-ray multiple in the morning -Stool culture for ova and parasite -Check lactic acid, TSH. -Clear liquid diet -Gastroenterology consultation -Patient received Relistor in the ED -Clear liquid diet -Pain pathway avoid opioid -DVT prophylaxis subcutaneous Lovenox -Full code
--- NOTE | 2016-08-05 00:25 | NUR ---
PT ASSIGNED TO ROOM 207-1
[2016-08-05 01:21] VITALS: BP 116/84
--- NOTE | 2016-08-05 01:55 | NUR ---
PT ARRIVED TO FLOOR 0120. VSS 116/84, 87 P, 98.8, 20 RR, 96% ON RA. PT A&0, LUNG SOUNDS CLEAR, POSITIVE PULSES, SKIN CDI WITHOUT EDEMA. ABDOMEN SOFT AND TENDER MOSTLY IN LRQ. LOWER BACK PAIN. NORMAL SALINE @ 100 SET UP AND RUNNING. PT REFUSING 0100 SCHEDULED ENEMA AND ASKS THAT SHE BEGIN REGIMEN AT 0600 SO SHE CAN GET SOME SLEEP. MD CASANDRA CHAU NOTIFIED. PT CALM, COOPERATIVE AND PLEASANT. WILL CONTINUE TO MONITOR
--- NOTE | 2016-08-05 07:35 | Admission Certification ---
Admission Certification Certification Statement - As attending physician, I certify that at the time of - admission, based on clinical presentation, severity of - symptoms, need for further diagnostic testing and - therapeutic interventions, and risk of adverse outcomes - without in-hospital treatment, in my clinical assessment, - this patient requires an acute hospital stay for a minimum - of two nights or longer. I have also considered psychsocial - factors such as support system, advanced age, financial - issues, cognitive issues, and failed out-patient treatments, - past re-admission history, safety of patient, and lack of - compliance as applicable. Specific rationale supporting this admission is: Patient is admitted to the hospital for severe abdominal pain secondary to constipation she has not moved her bowels for about 2-1/2 weeks. Rule out small bowel obstruction
--- NOTE | 2016-08-05 07:39 | PN- Att Addend ---
Attending Addendum Attending Brief Note Attending note. 50-year-old lady presents to emergency room with a chief complaint of obstipation for about 2-1/2 weeks. Increased abdominal pain and discomfort today can of 5 tablets of 5 daily and for fracture of the left wrist. She complains of for difficulty urinating as well as the lower back pain since the obstipation is progressively getting worse. Tried multiple medications [id number] as well as in the year she was given Relistor. Intake & Output 08/05 0800 08/05 0000 08/04 1600 Intake Total 600 1000 Output Total 600 Balance 0 1000 Intake, IV 600 1000 Output, Urine 600 Patient 180 lb 180 lb Weight Current Medications Sig/Kalin Start time Last Medication Dose Route Stop Time Status Admin Acetaminophen 650 MG Q6P PRN 08/05 010 AC PO Enoxaparin Sodium 40 MG DAILY 08/05 1000 AC SC Ibuprofen 600 MG Q6P PRN 08/05 0100 AC PO Ketorolac 30 MG ONCE ONE 08/04 2014 DC 08/04 Tromethamine IV 08/04 Lactulose 1 BOT Q8 08/05 010 AC PA Liothyronine Sodium 5 MCG DAILY AC 08/05 0700 AC 08/05 PO 0719 Methylnaltrexone 150 MG ONCE ONE 08/04 2315 CAN [place] SC 08/04 2316 Methylnaltrexone 12 MG ONCE ONE 08/04 2315 DC 08/04 [place] SC 08/04 2316 2341 Nicotine 14 MG Q24 08/05 1000 AC TOP Ondansetron HCl 0 .STK-MED ONE 08/04 1904 DC .ROUTE Ondansetron HCl 4 MG ONCE ONE 08/04 1830 DC 08/04 IV 08/04 183 1924 Phenylephrine HCl 1 TRACY Q6P PRN 08/05 0700 AC PA Polyethylene Glycol 17 GM DAILY 08/05 1000 AC PO Senna/Docusate Sodium 1 TAB BID PRN 08/05 0100 AC PO Sodium Chloride 1,000 ML .Q10H 08/05 0100 AC 08/05 IV 0144 Sodium Chloride 1,000 ML BOLUS ONE 08/04 1830 DC 08/04 IV 08/04 1929 1924 Laboratory Tests 08/04 08/04 2205 2153 Coagulation PT (9.4 - 12.5 SEC) 12.3 INR (0.90 - 1.19) 1.17 APTT (25 - 37 SEC) 30 Urines Urine Color (YEL,AMB,STR) YEL Urine Clarity (CLEAR) CLEAR Urine pH (5.0 - 8.0) 6.0 Ur Specific [place] (1.001 - 1.035) 1.010 Urine Protein (NEG,<30 MG/DL) NEG Urine Ketones (NEG) NEG Urine Nitrite (NEG) NEG Urine Bilirubin (NEG) NEG Urine Urobilinogen (0.1 - 1.0 EU/dl) 0.2 Ur Leukocyte Esterase (NEG) NEG Ur Microscopic EXAM NOT REQUIRED Urine Hemoglobin (NEG) NEG Urine Glucose (N MG/DL) NEG 08/04 1922 Chemistry Sodium (137 - 145 mmol/L) 139 Potassium (3.5 - 5.1 mmol/L) 4.9 Chloride (98 - 107 mmol/L) 98 Carbon Dioxide (22 - 30 mmol/L) 22 Anion Gap (5 - 16) 19 H BUN (7 - 17 mg/dL) 18 H Creatinine (0.5 - 1.0 mg/dL) 0.6 Estimated GFR (>60 ml/min) > 60 BUN/Creatinine Ratio (7 - 25 %) 30.0 H Glucose (65 - 99 mg/dL) 116 H Calcium (8.4 - 10.2 mg/dL) 10.1 Total Bilirubin (0.2 - 1.3 mg/dL) 0.9 AST (14 - 36 U/L) 27 ALT (9 - 52 U/L) 22 Alkaline Phosphatase (<127 U/L) 74 Total Protein (6.3 - 8.2 g/dL) 7.9 Albumin (3.5 - 5.0 g/dL) 4.9 Globulin (1.9 - 4.2 gm/dL) 3.0 Albumin/Globulin Ratio (1.1 - 2.2 %) 1.6 Amylase (30 - 110 U/L) 36 Lipase (23 - 300 U/L) 67 TSH (0.270 - 4.200 uIU/mL) 0.482 Hematology CBC w Diff NO MAN DIFF REQ WBC (4.8 - 10.8 /CUMM) 20.2 H RBC (4.20 - 5.40 /CUMM) 4.67 Hgb (12.0 - 16.0 G/DL) 14.2 Hct (37 - 47 %) 42.7 MCV (81.0 - 99.0 FL) 91.4 MCH (27.0 - 31.0 PG) 30.4 RDW (11.5 - 14.5 %) 13.4 Plt Count (130 - 400 /CUMM) 255 MPV (7.4 - 10.4 FL) 8.5 Gran % (42.2 - 75.2 %) 82.3 H Lymphocytes % (20.5 - 51.1 %) 12.5 L Monocytes % (1.7 - 9.3 %) 4.2 Eosinophils % (0 - 5 %) 0 Basophils % (0.0 - 2.0 %) 1.0 Absolute Granulocytes (1.4 - 6.5 /CUMM) 16.7 H Absolute Lymphocytes (1.2 - 3.4 /CUMM) 2.5 Absolute Monocytes (0.10 - 0.60 /CUMM) 0.9 H Absolute Eosinophils (0.0 - 0.7 /CUMM) 0 Absolute Basophils (0.0 - 0.2 /CUMM) 0.2 PUBS MCHC (33.0 - 37.0 G/DL) 33.3 Microbiology Date/Time Procedure - Status Source Growth 08/04 2152 Urine Culture - RECD URINE ROUT Vital Signs Date Time Temp Pulse Resp B/P Pulse O2 O2 Flow FiO2 Ox Delivery Rate 08/05 0121 98.8 87 20 116/84 96 Room Air 08/05 0119 Room Air 08/04 2324 99.2 96 18 127/63 96 Room Air 08/04 2123 99.2 92 18 128/63 97 Room Air 08/04 1843 97.8 90 18 132/69 95 08/04 1505 96 Room Air 08/04 1456 96.4 103 16 115/78 Room Air Intake & Output 08/05 0800 08/05 0000 08/04 1600 Intake Total 600 1000 Output Total 600 Balance 0 1000 Intake, IV 600 1000 Output, Urine 600 Patient 180 lb 180 lb Weight On examination is awake alert oriented Conjunctivae is pink sclerae anicteric JVD is not raised S1-S2 is normal Lungs are clear Abdomen is soft mildly distended bowel sounds are present Labs CT scan of the abdomen shows severe rectosigmoid constipation with fecal impaction Plan is Patient is to be disimpacted manually ER by colonoscopy will get a GI consult if it's unable to do it manually. Apparently it was tried manually in the ER Obtain a GI consult.
--- NOTE | 2016-08-05 07:45 | NUR ---
ATTEMPTED 0600 LACTULOSE ENEMA. PT COULD ONLY TOLERATE SMALL AMOUNT. MOD, CHARGE NURSE, AND ONCOMING RN NOTIFIED.
[2016-08-05 08:14] LABS: ABSOLUTE BASOPHIL COUNT 0 /CUMM (0.0-0.2); ABSOLUTE EOSINOPHIL COUNT 0 /CUMM (0.0-0.7); ABSOLUTE GRANULOCYTE CT 5.6 /CUMM (1.4-6.5); MEAN PLATELET VOLUME 8.4 FL (7.4-10.4); RED BLOOD CELL CT 3.91 /CUMM (4.20-5.40)
[2016-08-05 08:23] LABS: ABSOLUTE LYMPH COUNT 2.5 /CUMM (1.2-3.4); BASOPHIL % 0.3 % (0.0-2.0); EOSINOPHIL % 0.3 % (0-5); GRANULOCYTE % 61.3 % (42.2-75.2); PLATELET COUNT 208 /CUMM (130-400); RBC DISTRIBUTION WIDTH 13.6 % (11.5-14.5)
[2016-08-05 08:28] LABS: HEMATOCRIT 35.6 % (37-47); WHITE BLOOD CELL COUNT 9.1 /CUMM (4.8-10.8)
[2016-08-05 09:06] VITALS: BP 134/78
--- NOTE | 2016-08-05 09:37 | PN- Housestaff ---
Subjective Follow-up For: severs cinstipation, luecocytosis Complaints: no complaints Subjective: i have seen and examiend the patient, she is undergo fecal disimapction by surgery Review of Systems Constitutional: Reports: see HPI. Objective Last 24 Hrs of Vital Signs/I&O Vital Signs Date Time Temp Pulse Resp B/P Pulse O2 O2 Flow FiO2 Ox Delivery Rate 08/06 0714 98.1 58 18 122/80 95 Room Air 08/05 2340 98.7 58 18 112/56 97 Room Air Intake & Output 08/06 1600 08/06 0800 08/06 0000 Intake Total 1000 1200 1300 Output Total 700 Balance 1000 1200 600 Intake, IV 400 800 800 Intake, Oral 600 400 500 Number 0 1 Bowel Movements Output, Urine 700 Physical Exam General Appearance: Alert, Oriented X3, Cooperative, No Acute Distress Skin: No Rashes, No Breakdown, No Significant Lesion HEENT: Atraumatic, PERRLA, EOMI Neck: Supple, No JVD, No thryomegaly Lymphatic: no lad Cardiovascular: Regular Rate, Normal S1, Normal S2, No Murmurs Lungs: Clear to Auscultation, Normal Air Movement Abdomen: mild bloatign and tenderness Present, reduced BS Neurological: Strength at 5/5 X4 Ext, Normal Tone, Sensation Intact, Cranial Nerves 3-12 NL Extremities: No Clubbing, No Cyanosis, No Edema, Normal Pulses Vascular: Normal Pulses Current Medications: Current Medications Sig/Kalin Start time Last Medication Dose Route Stop Time Status Admin Acetaminophen 650 MG Q6P PRN 08/05 0100 AC 08/05 PO 1200 Bisacodyl 10 MG ONCE ONE 08/06 1515 DC NM 08/06 1516 Docusate Sodium 100 MG BID 08/06 2200 AC PO Enoxaparin Sodium 40 MG DAILY 08/05 1000 AC 08/06 SC 0818 Hyoscyamine 0.125 MG Q6PRN PRN 08/05 1730 AC PO Ibuprofen 600 MG Q6P PRN 08/05 0100 AC PO Lactulose 1 BOT Q8 08/05 0100 DC 08/05 NM 0700 Liothyronine Sodium 5 MCG DAILY AC 08/05 0700 AC 08/06 PO 0630 Nicotine 14 MG Q24 08/05 1000 AC TOP Phenylephrine HCl 1 TRACY Q6P PRN 08/05 0700 AC 08/05 NM 0952 Polyethylene Glycol 17 GM DAILY 08/05 1000 AC 08/06 PO 0817 Ramelteon 8 MG AT BEDTIME 08/05 2200 AC 08/05 PO 203 Senna/Docusate Sodium 1 TAB BID PRN 08/05 0100 AC 08/06 PO 0704 Sodium Chloride 1,000 ML .Q10H 08/05 0100 DC 08/06 IV 0630 Sodium Phosphate 1 UNIT ONCE ONE 08/05 2300 DC NM 08/05 2301 Lines/Diet/Fluids Restraints: none Assessment/Plan Assessment: 56-year-old female with PMH of constipation, alternating with diarrhea, hypothyroidism, presented to the ED for abdominal and back pain associated with 2.5 weeks of not being able to pass stool and gas. Pt admitted to with the following problems addressed: # Stool impaction most likely opioid induced, vs partial small bowel obstruction * s/p Lactulose enema NM 1 bottle q8 (pt refused lactulose now because she is tired) * continue Senna bid * continue Miralax daily * Ct IVF NS at 100ml/hr * advance deit to regualr with high fibre. * GI consult awaited. * patient underwent disimpaction by surgery had multiple bowel movements as per SX * continue to Hold opioids # Pain with urination - Negative UA * Follow UC # Left arm fracture * Keep arm in sling * Motrin 600 q6p * Avoid opioids # Nicotine dependence * Nicotine patch # hypothyroidism * Continue liothyronine Diet: clear liquid Fluids: 100ml/hr NS DVT ppx: alps & lovenox Problem List: 1. Abdominal pain 2. Fecal impaction Pain Ratin Pain Location: abdomen Pain Goal: Remain pain free Pain Plan: motrin Tomorrow's Labs & Rationales: cbc Discharge Plan Discharge Disposition: home Stable for Discharge? No Anticipated Discharge (Day): today If Discharged Today/In 24 Hrs: CMR done
--- NOTE | 2016-08-05 09:57 | RADIOLOGY REPORT ---
EXAMINATION: XR ABDOMEN MULTIPLE VIEWS CLINICAL INDICATION: Fecal impaction with abdominal pain and constipation. COMPARISON: CT yesterday. TECHNIQUE: Single view KUB. FINDINGS: Contrast is in the bladder which appears unremarkable. The bowel gas pattern appears normal without evidence of bowel obstruction. No free air is seen. Vascular calcifications are noted. IMPRESSION: Unremarkable examination.
--- NOTE | 2016-08-05 13:03 | PN- General Surgery ---
Surgical Brief Attending Note Brief Attending Note: Patient had multiple bowel movements. xray unremarkable. ok for d/c. f/u with pcp as needed.
--- NOTE | 2016-08-05 14:07 | Patient Discharge Instructions ---
Discharge Instructions General Discharge Information You were seen/treated for: constipation Special Instructions: please follow up with your PCP within one week of discharge. Diet Continue normal diet: No Recommended Diet: high fibre diet. Activity Full Activity/No Limits: Yes Acute Coronary Syndrome Inclusion Criteria At DC or during hospital stay patient has or had the following: ACS DIAGNOSIS No Discharge Core Measures Meds if any: Prescribed or Continued at Discharge Meds if any: NOT Prescribed or Continued at Discharge Congestive Heart Failure Inclusion Criteria At DC or during hospital stay patient has or had the following: CHF DIAGNOSIS No Discharge Core Measures Meds if any: Prescribed or Continued at Discharge Meds if any: NOT Prescribed or Continued at Discharge Cerebrovascular accident Inclusion Criteria At DC or during hospital stay patient has or had the following: CVA/TIA Diagnosis No Discharge Core Measures Meds if any: Prescribed or Continued at Discharge Meds if any: NOT Prescribed or Continued at Discharge Venous thromboembolism Inclusion Criteria VTE Diagnosis No VTE Type NONE VTE Confirmed by (Test) NONE Discharge Core Measures - Per Current guidelines, there needs to be overlap - treatment for the first 5 days of Warfarin therapy. - If discharged on Warfarin prior to 5 days of - overlap therapy, the patient will need to be - assessed for post discharge needs including - *Post discharge parental anticoagulation - *Warfarin and/or parental anticoagulation education - *Follow up date to check INR post discharge At least 5 days overlap therapy as Inpatient No Meds if any: Prescribed or Continued at Discharge Note: Overlap Therapy is Warfarin and Anticoagulant Meds if any: NOT Prescribed or Continued at Discharge
--- NOTE | 2016-08-05 14:39 | Cons- Gastroenterology ---
General Information and HPI Consulting Request Date of Consult: 08/05/16 Requested By: AVANI PARRA MD Reason for Consult: Abdominal pain, change in bowel habits, abnormal ct scan showing fecal impaction vs PSBO. Source of Information: patient Exam Limitations: no limitations History of Present Illness: Ms. Larson is a 56 year old female with a history of hypothyroidism who presented to ED with complaints of abdominal and back pain that began on Monday. She has been having a constant stabbing pain in her RLQ which she notes is exacerbated with attempting to move her bowels and with walking, but it is not exacerbated with eating. She also complains of rectal discomfort which also began on Monday. She notes that over the past 21/2 weeks she has been having worsening constipation where she normally has 1-2 BMs a week. She has tried senna and an enema at home without much relief. The discomfort has been associated with some nausea and bilious vomiting, but no hematemsis. She has occasional heartburn that doesn't require antacids. In the emergency room she was hemodynamically stable and afebrile. She had a CAT scan which was concerning for fecal impaction versus a partial small bowel obstruction. She was seen by surgery who did not feel her symptoms were secondary to a bowel obstruction. Unsuccessful attempts were made to disimpact her in the emergency room. She has subsequently received a fleets enema and has had a hard bowel movement which is offered her some improvement in her symptoms, but the pain has persisted. Allergies/Medications Allergies: Coded Allergies: NO KNOWN ALLERGIES (06/16/12) Home Med List: Cholecalciferol (Vitamin D3) (Vitamin D) (Unknown Strength) CAPSULE 1 TAB PO DAILY SUPPLEMENT (Reported) Docusate Sodium 100 MG CAPSULE 100 MG PO BID CONSTIPATION Liothyronine Sodium (Cytomel) 5 MCG TABLET 1 TAB PO DAILY THYROID (Reported) Polyethylene Glycol 3350 (Miralax) 17 GRAM/DOSE POWDER 17 GM PO DAILY CONSTIPATION STOP IF YOU HAVE LOOSE STOOLS Sennosides/Docusate Sodium (Senna Plus Tablet) 8.6 MG-50 MG TABLET 1 TAB PO BID PRN CONSTIPATION Current Medications: Current Medications Sig/Kalin Start time Last Medication Dose Route Stop Time Status Admin Acetaminophen 650 MG Q6P PRN 08/05 0100 AC 08/05 PO 1200 Enoxaparin Sodium 40 MG DAILY 08/05 1000 AC 08/05 SC 0947 Ibuprofen 600 MG Q6P PRN 08/05 0100 AC PO Ketorolac 30 MG ONCE ONE 08/04 2014 DC 08/04 Tromethamine IV 08/04 Lactulose 1 BOT Q8 08/05 0100 AC 08/05 MO 0700 Liothyronine Sodium 5 MCG DAILY AC 08/05 0700 AC 08/05 PO 0719 Methylnaltrexone 150 MG ONCE ONE 08/04 2315 CAN [place] SC 08/04 2316 Methylnaltrexone 12 MG ONCE ONE 08/04 2315 DC 08/04 [place] SC 08/04 2316 2341 Nicotine 14 MG Q24 08/05 1000 AC TOP Ondansetron HCl 0 .STK-MED ONE 08/04 1904 DC .ROUTE Ondansetron HCl 4 MG ONCE ONE 08/04 1830 DC 08/04 IV 08/04 1831 1924 Patient Medication 1 ED .STK-MED ONE 08/05 1344 DC Teaching ED 08/05 1345 Phenylephrine HCl 1 TRACY Q6P PRN 08/05 0700 AC 08/05 MO 0952 Polyethylene Glycol 17 GM DAILY 08/05 1000 AC 08/05 PO 0947 Senna/Docusate Sodium 1 TAB BID PRN 08/05 0100 AC PO Sodium Chloride 1,000 ML .Q10H 08/05 0100 AC 08/05 IV 0948 Sodium Chloride 1,000 ML BOLUS ONE 08/04 1830 DC 08/04 IV 08/04 1929 1924 Past History Travel History Traveled to [place] past 21 day No Medical History Blood Transfusion Hx: No Neurological: NONE EENT: NONE Cardiovascular: NONE Respiratory: NONE Gastrointestinal: NONE, colonoscopy 2013 - no polyps; 2009 TA Hepatic: NONE Renal: NONE Musculoskeletal: NONE Psychiatric: NONE Endocrine: hypothyroidism Blood Disorders: NONE Cancer(s): NONE TALLIER/Reproductive: NONE Surgical History Surgical History: appendectomy, tubal ligation, NECK RUPTURE REPAIR Family History Relations & Conditions If Any: BROTHER FH: diabetes mellitus FH: lung cancer FATHER FH: myocardial infarction MOTHER FH: stroke Psychosocial History Where Do You Live? Home Who Do You Live With? spouse Services at Home: None Primary Language: Persian Smoking Status: Current Everyday Smoker ETOH Use: denies use Illicit Drug Use: denies illicit drug use Functional Ability ADLs Independent: dressing, eating, toileting, bathing. Ambulation: independent IADLs Independent: shopping, housework, finances, food prep, telephone, transportation , medication admin. 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 Denies: diaphoresis, fever, malaise, unexplained weight loss. EENTM: Denies: no symptoms. Cardiovascular: Denies: no symptoms. Respiratory: Denies: no symptoms. GI: Reports: see HPI. Genitourinary: Reports: dysuria. Musculoskeletal: Reports: back pain. Denies: joint pain, joint swelling. Skin: Denies: no symptoms. Neurological/Psychological: Denies: no symptoms. Hematologic/Endocrine: Denies: no symptoms. Immunologic/Allergic: Denies: no symptoms. All Other Systems: Reviewed and Negative Exam & Diagnostic Data Vital Signs and I&O Vital Signs Date Time Temp Pulse Resp B/P Pulse O2 O2 Flow FiO2 Ox Delivery Rate 08/05 0906 98.2 97 20 134/78 96 08/05 0121 98.8 87 20 116/84 96 Room Air 08/05 0119 Room Air 08/04 2324 99.2 96 18 127/63 96 Room Air 08/04 2123 99.2 92 18 128/63 97 Room Air 08/04 1843 97.8 90 18 132/69 95 08/04 1505 96 Room Air 08/04 1456 96.4 103 16 115/78 Room Air Intake & Output 08/05 1600 08/05 0400 08/04 1600 08/04 0400 08/03 1600 08/03 0400 Intake Total 600 1000 Output Total 600 Balance 0 1000 Intake, IV 600 1000 Output, Urine 600 Patient 180 lb 180 lb Weight Physical Exam General Appearance: well developed/nourished, no apparent distress, alert, mild distress Head: atraumatic, normal appearance Eyes: Bilateral: normal appearance. Ears, Nose, Throat: normal pharynx, normal ENT inspection Neck: normal inspection, supple, full range of motion Respiratory: normal breath sounds, chest non-tender Cardiovascular: regular rate/rhythm Gastrointestinal: normal bowel sounds, soft, guarding, tenderness Rectal: deferred Back: normal inspection, normal range of motion Extremities: normal inspection, no edema Results Pertinent Lab Results: Laboratory Tests 08/05 08/05 08/04 0635 0635 2205 Chemistry Sodium (137 - 145 mmol/L) 139 Potassium (3.5 - 5.1 mmol/L) 3.8 Chloride (98 - 107 mmol/L) 103 Carbon Dioxide (22 - 30 mmol/L) 26 Anion Gap (5 - 16) 11 BUN (7 - 17 mg/dL) 13 Creatinine (0.5 - 1.0 mg/dL) 0.7 Estimated GFR (>60 ml/min) > 60 BUN/Creatinine Ratio (7 - 25 %) 18.6 Lactic Acid (0.7 - 2.1 mmol/L) 0.9 Coagulation PT (9.4 - 12.5 SEC) 12.3 INR (0.90 - 1.19) 1.17 APTT (25 - 37 SEC) 30 Hematology CBC w Diff NO MAN DIFF REQ WBC (4.8 - 10.8 /CUMM) 9.1 RBC (4.20 - 5.40 /CUMM) 3.91 L Hgb (12.0 - 16.0 G/DL) 12.1 Hct (37 - 47 %) 35.6 L MCV (81.0 - 99.0 FL) 91.0 MCH (27.0 - 31.0 PG) 31.0 RDW (11.5 - 14.5 %) 13.6 Plt Count (130 - 400 /CUMM) 208 MPV (7.4 - 10.4 FL) 8.4 Gran % (42.2 - 75.2 %) 61.3 Lymphocytes % (20.5 - 51.1 %) 27.5 Monocytes % (1.7 - 9.3 %) 10.6 H Eosinophils % (0 - 5 %) 0.3 Basophils % (0.0 - 2.0 %) 0.3 Absolute Granulocytes (1.4 - 6.5 /CUMM) 5.6 Absolute Lymphocytes (1.2 - 3.4 /CUMM) 2.5 Absolute Monocytes (0.10 - 0.60 /CUMM) 1.0 H Absolute Eosinophils (0.0 - 0.7 /CUMM) 0 Absolute Basophils (0.0 - 0.2 /CUMM) 0 PUBS MCHC (33.0 - 37.0 G/DL) 34.0 08/04 08/04 3053 1923 Chemistry Sodium (137 - 145 mmol/L) 139 Potassium (3.5 - 5.1 mmol/L) 4.9 Chloride (98 - 107 mmol/L) 98 Carbon Dioxide (22 - 30 mmol/L) 22 Anion Gap (5 - 16) 19 H BUN (7 - 17 mg/dL) 18 H Creatinine (0.5 - 1.0 mg/dL) 0.6 Estimated GFR (>60 ml/min) > 60 BUN/Creatinine Ratio (7 - 25 %) 30.0 H Glucose (65 - 99 mg/dL) 116 H Calcium (8.4 - 10.2 mg/dL) 10.1 Total Bilirubin (0.2 - 1.3 mg/dL) 0.9 AST (14 - 36 U/L) 27 ALT (9 - 52 U/L) 22 Alkaline Phosphatase (<127 U/L) 74 Total Protein (6.3 - 8.2 g/dL) 7.9 Albumin (3.5 - 5.0 g/dL) 4.9 Globulin (1.9 - 4.2 gm/dL) 3.0 Albumin/Globulin Ratio (1.1 - 2.2 %) 1.6 Amylase (30 - 110 U/L) 36 Lipase (23 - 300 U/L) 67 TSH (0.270 - 4.200 uIU/mL) 0.482 Hematology CBC w Diff NO MAN DIFF REQ WBC (4.8 - 10.8 /CUMM) 20.2 H RBC (4.20 - 5.40 /CUMM) 4.67 Hgb (12.0 - 16.0 G/DL) 14.2 Hct (37 - 47 %) 42.7 MCV (81.0 - 99.0 FL) 91.4 MCH (27.0 - 31.0 PG) 30.4 RDW (11.5 - 14.5 %) 13.4 Plt Count (130 - 400 /CUMM) 255 MPV (7.4 - 10.4 FL) 8.5 Gran % (42.2 - 75.2 %) 82.3 H Lymphocytes % (20.5 - 51.1 %) 12.5 L Monocytes % (1.7 - 9.3 %) 4.2 Eosinophils % (0 - 5 %) 0 Basophils % (0.0 - 2.0 %) 1.0 Absolute Granulocytes (1.4 - 6.5 /CUMM) 16.7 H Absolute Lymphocytes (1.2 - 3.4 /CUMM) 2.5 Absolute Monocytes (0.10 - 0.60 /CUMM) 0.9 H Absolute Eosinophils (0.0 - 0.7 /CUMM) 0 Absolute Basophils (0.0 - 0.2 /CUMM) 0.2 PUBS MCHC (33.0 - 37.0 G/DL) 33.3 Urines Urine Color (YEL,AMB,STR) YEL Urine Clarity (CLEAR) CLEAR Urine pH (5.0 - 8.0) 6.0 Ur Specific [place] (1.001 - 1.035) 1.010 Urine Protein (NEG,<30 MG/DL) NEG Urine Ketones (NEG) NEG Urine Nitrite (NEG) NEG Urine Bilirubin (NEG) NEG Urine Urobilinogen (0.1 - 1.0 EU/dl) 0.2 Ur Leukocyte Esterase (NEG) NEG Ur Microscopic EXAM NOT REQUIRED Urine Hemoglobin (NEG) NEG Urine Glucose (N MG/DL) NEG Imaging/Other Studies: ct scan: FINDINGS: Heel Blacker view demonstrates severe stool impaction in the rectosigmoid colon. There is no proximal dilatation of the intestinal tract. LUNG BASES: The visualized lung bases are unremarkable. LIVER, GALLBLADDER, AND BILIARY TREE: Normal. PANCREAS: Unremarkable. SPLEEN: Unremarkable. ADRENAL GLANDS: Unremarkable. KIDNEYS AND URETERS: Normal. The right renal pelvis is extrarenal. BLADDER: Distended. GASTROINTESTINAL TRACT: There are two significant findings with regard to the GI tract. First, on the prior CT exam, the duodenal jejunal junction was located in the left upper quadrant in the normally expected position. On today's exam the patient has a mobile mesentery and the DJ junction is clearly positioned more medially and inferiorly. There are slightly dilated proximal jejunal loops now present in the right abdomen. Also, there is a swirling type appearance at the root of the mesentery. This was not the case on the previous study. This volvulus has resulted in incomplete obstruction and the distal small bowel loops are decompressed. Also, the cecum and ileocecal valve are positioned more superiorly and medially on today's exam when compared to the prior study. The second abnormality is the observation that the patient has severe stool impaction of the rectosigmoid colon. The distended stool-filled rectosigmoid colon measures 8 cm in diameter. The rest of the colon is decompressed. There is no free air or free fluid. No pneumatosis. ABDOMINAL WALL: No significant hernia is appreciated. LYMPH NODES: Normal. VASCULAR: Numerous calcific plaques are seen in the infrarenal abdominal aorta. PELVIC VISCERA: Normal uterus and adnexa. No free fluid. OSSEOUS STRUCTURES: Unremarkable. IMPRESSION: 1. Findings that would indicate a partial small bowel obstruction due to a mobile mesentery, (malrotation), and jejunal volvulus. 2. Mobile cecum. 3. Severe stool impaction of the rectosigmoid colon. KUB: FINDINGS: Contrast is in the bladder which appears unremarkable. The bowel gas pattern appears normal without evidence of bowel obstruction. No free air is seen. Vascular calcifications are noted. IMPRESSION: Unremarkable examination. Assessment/Plan Assessment/Recommendations: Assessment: Ms. Larson is a 56 year old who comes in with worsening abdominal pain which based on her history and ct scan findings is most likely secondary to fecal impaction from chronic constipation, C-IBS and exacerbated by the narcotics that she has been taking for a recent wrist injury. It is also possible her hypothyroidism contributes to her constipation, but her TSH was WNL on admission. Her ct scan also mentioned a jejunal volvulus, however this is rare and her repeat KUB this morning didn't show any evidence of obstruction. Furthermore, she has been evaluated by surgery who don't feel she has a partial SBO. She has had some benefit with an enema, but she continues to complain of discomfort which I suspect is secondary to bowel spasm. She is without any rectal bleeding or concerning GI warning signs so as she had a negative colonoscopy in [address] scan didn't show any obvious bowel pathology I don't feel she requires a repeat colonoscopy at this time. Recommendations: 1. Advance to high fiber diet as tolerated 2. Continue standing order of miralax 3. Use antispasmodics as needed for pain 4. Follow lytes and replete as needed 5. Continue oral thyroid replacement medication at current dose 6. Follow daily KUB 7. Avoid narcotics 8. If diet is able to be advanced and pts pain is well controlled with oral non -narcotic pain medication it would be reasonble to discharge home to follow up as an outpatient for further management of her chronic constipation. I will continue to follow this patient and make further recommendations based on her clinical course. Problem List: 1. Fecal impaction 2. Abdominal pain Copies To: FARENS MD,AVANI Lees Consult Acknowledgment - Thank you for your consult request.
[2016-08-05 15:50] VITALS: BP 122/62
--- NOTE | 2016-08-05 17:24 | NUR ---
SPOKE WITH DR LOU REGARDING-ADV TO HIGH FIBER DIET (PER DR KAPLAN'S NOTE), SOMETHING FOR SLEEP PER PATIENT'S REQUEST, AND CHANGING THE LACTULOSE ENEMA TO A FLEET ENEMA. AWAITING NEW ORDERS.
[2016-08-05 23:40] VITALS: BP 112/56
[2016-08-06 07:14] VITALS: BP 122/80
--- NOTE | 2016-08-06 09:15 | PN- Housestaff ---
Subjective Follow-up For: Severe constipation Complaints: no complaints Subjective: Examined the patient today. She is comfortable, and has passed small amount of stool. But she also complained of some nausea. Vitals have been stable overnight, no increasing abdominal pain, no fever, no issues overnight. Review of Systems Constitutional: Reports: no symptoms. Cardiovascular: Reports: no symptoms. Respiratory: Reports: no symptoms. Gastrointestinal: Reports: no symptoms. Genitourinary: Reports: no symptoms. Objective Last 24 Hrs of Vital Signs/I&O Vital Signs Date Time Temp Pulse Resp B/P Pulse O2 O2 Flow FiO2 Ox Delivery Rate 08/06 1554 98.5 52 18 122/78 97 08/06 0714 98.1 58 18 122/80 95 Room Air 08/05 2340 98.7 58 18 112/56 97 Room Air Intake & Output 08/06 1600 08/06 0800 08/06 0000 Intake Total 1000 1200 1300 Output Total 700 Balance 1000 1200 600 Intake, IV 400 800 800 Intake, Oral 600 400 500 Number 0 1 Bowel Movements Output, Urine 700 Physical Exam General Appearance: Alert, Oriented X3, Cooperative, No Acute Distress Cardiovascular: Regular Rate, Normal S1, Normal S2 Lungs: Clear to Auscultation, Normal Air Movement Abdomen: Normal Bowel Sounds, Soft, No Tenderness Neurological: grossly intact Current Medications: Current Medications Sig/Kalin Start time Last Medication Dose Route Stop Time Status Admin Acetaminophen 650 MG Q6P PRN 08/05 0100 DCD 08/05 PO 1200 Bisacodyl 10 MG ONCE ONE 08/06 1515 DC AL 08/06 1516 Docusate Sodium 100 MG BID 08/06 2200 DCD PO Enoxaparin Sodium 40 MG DAILY 08/05 1000 DCD 08/06 SC 0818 Hyoscyamine 0.125 MG Q6PRN PRN 08/05 1730 DCD PO Ibuprofen 600 MG Q6P PRN 08/05 0100 DCD PO Lactulose 1 BOT Q8 08/05 0100 DC 08/05 AL 0700 Liothyronine Sodium 5 MCG DAILY AC 08/05 0700 DCD 08/06 PO 0630 Nicotine 14 MG Q24 08/05 1000 DCD TOP Phenylephrine HCl 1 TRACY Q6P PRN 08/05 0700 DCD 08/05 AL 0952 Polyethylene Glycol 17 GM DAILY 08/05 1000 DCD 08/06 PO 0817 Ramelteon 8 MG AT BEDTIME 08/050 DCD 08/05 PO 2033 Senna/Docusate Sodium 1 TAB BID PRN 08/05 0100 DCD 08/06 PO 0704 Sodium Chloride 1,000 ML .Q10H 08/05 0100 DC 08/06 IV 0630 Sodium Phosphate 1 UNIT ONCE ONE 08/05 2300 DC AL 08/05 2301 Assessment/Plan Assessment: 56-year-old female with PMH of constipation, alternating with diarrhea, hypothyroidism, presented to the ED for abdominal and back pain associated with 2.5 weeks of not being able to pass stool and gas. Pt admitted to with the following problems addressed: # Stool impaction most likely opioid induced, vs partial small bowel obstruction * s/p enema, and passage of small amount of stool * continue Senna bid * continue Miralax daily * IV fluids have been discontinued * advance deit to regualr with high fibre. * For GI consult, she can be discharged home if she has regular bowel movement, without any pain, nausea or vomiting * patient underwent disimpaction by surgery had multiple bowel movements as per SX * continue to Hold opioids # Pain with urination - Negative UA * Follow UC # Left arm fracture * Keep arm in sling * Motrin 600 q6p * Avoid opioids # Nicotine dependence * Nicotine patch # hypothyroidism * Continue liothyronine Diet: clear liquid Fluids: 100ml/hr NS DVT ppx: alps & lovenox Problem List: 1. Fecal impaction 2. Constipation Pain Ratin Pain Location: - Pain Goal: Remain pain free Pain Plan: When necessary Tomorrow's Labs & Rationales: -
--- NOTE | 2016-08-06 13:52 | PN- Pulmonary ---
Subjective HPI/Critical Care Issues: Doing better Did have some bowel movements Feels better Objective Current Medications: Current Medications Sig/Kalin Start time Last Medication Dose Route Stop Time Status Admin Acetaminophen 650 MG Q6P PRN 08/05 0100 AC 08/05 PO 1200 Enoxaparin Sodium 40 MG DAILY 08/05 1000 AC 08/06 SC 0818 Hyoscyamine 0.125 MG Q6PRN PRN 08/05 1730 AC PO Ibuprofen 600 MG Q6P PRN 08/05 0100 AC PO Lactulose 1 BOT Q8 08/05 0100 DC 08/05 MT 0700 Liothyronine Sodium 5 MCG DAILY AC 08/05 0700 AC 08/06 PO 0630 Nicotine 14 MG Q24 08/05 1000 AC TOP Phenylephrine HCl 1 TRACY Q6P PRN 08/05 0700 AC 08/05 MT 0952 Polyethylene Glycol 17 GM DAILY 08/05 1000 AC 08/06 PO 0817 Ramelteon 8 MG AT BEDTIME 08/05 2200 AC 08/05 PO 2033 Senna/Docusate Sodium 1 TAB BID PRN 08/05 0100 AC 08/06 PO 0704 Sodium Chloride 1,000 ML .Q10H 08/05 0100 DC 08/06 IV 0630 Sodium Phosphate 1 UNIT ONCE ONE 08/05 2300 DC MT 08/05 2301 Vital Signs & I&O Last 24 Hrs of Vitals and I&O: Vital Signs Date Time Temp Pulse Resp B/P Pulse O2 O2 Flow FiO2 Ox Delivery Rate 08/06 0714 98.1 58 18 122/80 95 Room Air 08/05 2340 98.7 58 18 112/56 97 Room Air 08/05 1550 97.9 62 19 122/62 95 Intake & Output 08/06 1600 08/06 0800 08/06 0000 Intake Total 1200 1300 Output Total 700 Balance 1200 600 Intake, IV 800 800 Intake, Oral 400 500 Number 1 Bowel Movements Output, Urine 700 Impression/Plan Impression/Plan Impression/Plan: Pupils reacting extraocular movements intact Abdominal exam soft bowel sounds were heard Chest clear to auscultation Wrist in splint Normal bowel sounds Extremity no cyanosis clubbing or edema Significant data reviewed blood work from yesterday showed potassium of 3.8 magnesium was pending white count was normal at 9.1 with no significant left shift Abdominal x-ray yesterday was unremarkable IMPRESSION Significant constipation with stool impaction now resolved No significant evidence of jejunal volvulus Previous narcotic use for her wrist fracture contributed to worsening of her chronic constipation Hypothyroidism on appropriate supplementation TSH was normal RECOMMENDATION Abdominal x-ray if stable can be discharged Advanced a high-fiber diet Daily MiraLAX Avoid narcotics Patient should go home on Senokot twice a day and docusate twice a day Lipitor low fluids When necessary anti-spasmatic Advance diet Increase activity Give MiraLAX today, a Dulcolax suppository. She has no bowel movement she can get one enema before she can be discharged today.
--- NOTE | 2016-08-06 15:04 | RADIOLOGY REPORT ---
EXAMINATION: XR ABDOMEN CLINICAL INDICATION: Fecal impaction. Assess for bowel obstruction. Perforation. Abdominal pain. Constipation. COMPARISON: 08/05/2016 TECHNIQUE: 2 views of the abdomen were obtained. FINDINGS: No pneumoperitoneum. No portal venous gas. Scattered loops of aerated large and small bowel demonstrated without significant distention. There is medialization of the cecum, which was demonstrated on CT 08/04/2016. No large stool burden demonstrated. Scattered small nonspecific air-fluid levels. Lung bases are clear. Lower lumbar facet arthropathy change. IMPRESSION: Overall nonobstructive bowel gas pattern. No pneumoperitoneum demonstrated.
[2016-08-06] MEDS ORDERED: SENNA PLUS TAB1 EACH PO (15:17)
[2016-08-06] MEDS ORDERED: DOCUSATE SODIU100 M3 PO (15:19)
[2016-08-06] MEDS ORDERED: MIRALAX119 GM PO (15:22)
--- NOTE | 2016-08-06 15:37 | NUR ---
NURSING NOTE: PT STABLE FOR DISCHARGE PER MD. PT OLIVA PO DIET. PT REFUSING DUCOLAX SUPP ORDERED PRIOR TO DISCHARGE DR. FABIAN AWARE AND AGREES WITH DISCHARGE
[2016-08-06 15:54] VITALS: BP 122/78
--- NOTE | 2016-08-28 09:36 | Discharge Summary ---
Visit Information Visit Dates Admission Date: 08/04/16 Discharge Date: 08/06/16 Hospital Course Course Attending Physician: AVANI PARRA MD Primary Care Physician: AVANI PARRA MD Other Care Providers: DR RUI KAPLAN Consulting Request: Consulting Specialty: Pulmonary Disease Hospital Course: Pt admitted for abdominal pain and severe constipation, pt had tried all sorts of medication, before she came to the hospital. Opoid iduced constipation for wrist fracture. CT SCAN of abdomen showed fecal impaction. she was disimpacted and she felt better. Allergies: Coded Allergies: NO KNOWN ALLERGIES (06/16/12) Disposition Summary Disposition Principal Diagnosis: Opioid induced constipatio Additional Diagnosis: fracture wrist Discharge Disposition: home or self care Discharge Instructions General Discharge Information Code Status: Full Code Patient's Diet: Regular Patient's Activity: As tolerated Follow-Up Instructions/Appts: follow up in the office. Medications at Discharge Discharge Medications: Stop taking the following medications: Hydrocodone/Acetaminophen (Hydrocodon-Acetaminoph 7.5-300) 7.5 MG-300 MG TABLET ORAL Every other day Qty = 42 Continue taking these medications: Liothyronine Sodium (Cytomel) 5 MCG TABLET 1 Tablet ORAL DAILY Comments: Last Taken: 08/06/16 Time: 6:30 AM Cholecalciferol (Vitamin D3) (Vitamin D) (Unknown Strength) CAPSULE 1 Tablet ORAL DAILY Comments: NOT GIVEN IN HOSPITAL Start taking the following new medications: Sennosides/Docusate Sodium (Senna Plus Tablet) 8.6 MG-50 MG TABLET 1 Tablet ORAL TWICE DAILY as needed for CONSTIPATION Days = 30 No Refills Comments: Last Taken: 08/06/16 Time: 7:00 AM Docusate Sodium (Docusate Sodium) 100 MG CAPSULE 100 Milligram ORAL TWICE DAILY Days = 30 No Refills Comments: STOP IF YOU HAVE LOOSE STOOLS NOT GIVEN IN HOSPITAL Polyethylene Glycol 3350 (Miralax) 17 GRAM/DOSE POWDER 17 Gram ORAL DAILY Days = 30 No Refills Instructions: STOP IF YOU HAVE LOOSE STOOLS Comments: Last Taken: 08/06/16 Time: 8:30 AM Copies To: RUI SOLOMON,ISAIAH Murphy Attending MD Review Statement Documenting Attending: AVANI PARRA MD
== END 2016-08-06 15:53 | DRG 392 ==
LOC: ENRESERVDT → ENRESERVTM → ERH 14:50 → ENPENDDIS 23:47 → ERHI 23:47 → 2NB 23:47
PROVIDERS: Internal Medicine Hematology & Oncology; Physician Assistant; ADMIT Internal Medicine
DX: K59.00 Constipation, unspecified (principal); E03.9 Hypothyroidism, unspecified
CPT/HCPCS: 2NBP; ERO; 36415; 74020; 74177; 81003; 82436; 87086; 96372; 96374; 96375; J1650; J2405